=== PATIENT | female | born 1990 | race Two or more races ===

== ENCOUNTER 2019-04-22 11:04 | Emergency (ER) | payer OTHER ==
[~2019-04-22] VITALS: Ht 162.6 cm; Wt 77.1 kg
[2019-04-22] MEDS ORDERED: OBSTETRIX DHA1 EACH (11:45)
== END 2019-04-22 18:33 | disposition home or self-care (01) ==
LOC: ER 11:04
DX: O20.0 Threatened abortion (principal)

== ENCOUNTER 2019-08-02 09:31 | Outpatient (CLI) | payer OTHER ==
[~2019-08-02 09:31] MED LIST: OBSTETRIX DHA1 EACH
== END 2019-08-02 10:47 | disposition home or self-care (01) ==
LOC: NST 09:31
DX: Z34.83 Encounter for supervision of other normal pregnancy, third trimester (principal)

== ENCOUNTER 2019-08-03 09:24 | Outpatient (CLI) | payer OTHER | END 2019-08-03 10:30 | disposition home or self-care (01) | LOC: NST 09:24 | DX: Z34.83 Encounter for supervision of other normal pregnancy, third trimester (principal) ==

== ENCOUNTER 2019-08-23 08:53 | Outpatient (CLI) | payer OTHER | END 2019-08-23 09:40 | disposition home or self-care (01) | LOC: NST 08:53 | DX: Z34.83 Encounter for supervision of other normal pregnancy, third trimester (principal) ==

== ENCOUNTER 2019-08-30 10:38 | Inpatient (IN) | payer OTHER ==
[~2019-08-30] VITALS: Ht 162.6 cm; Wt 2194.0 kg
[2019-08-30] MEDS ORDERED: NIFEDIPINE20 MG PO (12:30)
[2019-09-07] MEDS ORDERED: KETO10TA2 PO (07:51)
[2019-09-07] MEDS ORDERED: OXYC1TAB9 PO (07:51)
== END 2019-09-07 14:55 | disposition home or self-care (01) | DRG 785 ==
LOC: NST 10:38 → OB/GYN 11:21 → LDR 11:21 → OB/GYN 08-31 08:02
PROVIDERS: ADMIT Obstetrics & Gynecology Maternal & Fetal Medicine
PROC: 0UL70ZZ Occlusion of Bilateral Fallopian Tubes, Open Approach (ICD-10-PCS; 2019-09-04)
PROC: 4A1HXCZ Monitoring of Products of Conception, Cardiac Rate, External Approach (ICD-10-PCS; 2019-09-04)
PROC: 10D00Z1 Extraction of Products of Conception, Low, Open Approach (ICD-10-PCS; principal; 2019-09-04 10:30)
DX: O82 Encounter for cesarean delivery without indication (principal); O64.1XX0 Obstructed labor due to breech presentation, not applicable or unspecified; O30.043 Twin pregnancy, dichorionic/diamniotic, third trimester; Z3A.32 32 weeks gestation of pregnancy; Z37.2 Twins, both liveborn; Z30.2 Encounter for sterilization